=== PATIENT | female | born 1960 | race Caucasian/White ===

== ENCOUNTER 2024-07-12 07:32 | Day surgery (SDC) | payer OTHER, SELFPAY ==
[2024-06-26 12:31] VITALS: BMI 44.6
[2024-06-26 13:06] LABS: % Basophils 0.8 % (0-2); % Eosinophils 2.6 % (0-6); % Immature Granulocytes 0.2 % (0-0.5); % Lymphocytes 29.4 % (20.5-51.1); % Monocytes 7.3 % (1.7-9.3); % Neutrophils 59.7 % (42.2-75.2); Absolute Basophils 0.1 10^3/uL (0-0.2); Absolute Eosinophils 0.2 10^3/uL (0-0.7); Absolute Lymphocytes 1.9 10^3/uL (1.2-3.4); Absolute Monocytes 0.5 10^3/uL (0.1-0.6); Absolute Neutrophils 3.8 10^3/uL (1.4-6.5); Hematocrit 45.8 % (37.0-47.0); Hemoglobin 14.8 g/dL (12.0-16.0); Mean Corp Hgb Conc. 32.3 g/dL (33.0-37.0); Mean Corpuscular Hgb 30.6 pg (27.0-31.0); Mean Corpuscular Volume 94.6 fL (81.0-99.0); Mean Platelet Volume 10.2 fL (7.4-10.4); Nucleated Red Blood Cells % 0 %; Platelet Count 228 10^3/uL (130-400); Red Blood Cell Count 4.84 10^6/uL (4.20-5.40); Red Cell Dist. Width 12.5 % (11.5-14.5); White Blood Cell Count 6.4 10^3/uL (4.8-10.8)
[2024-06-26 13:13] LABS: INR 1.01; PT 13.6 Sec (11.4-14.6)
[2024-06-26 13:21] LABS: ALT (SGPT) 18 U/L (0-35); AST (SGOT) 22 U/L (14-36); Albumin 4.1 g/dl (3.5-5.0); Alkaline Phosphatase 132 U/L (38-126); Blood Urea Nitrogen 15 mg/dl (7-17); Calcium 9.1 mg/dl (8.4-10.2); Carbon Dioxide 32 mmol/L (22-30); Chloride 102 mmol/L (98-107); Estimated Creatinine Clearance 105 ml/min; Glucose 134 mg/dl (70-99); Potassium 4.7 mmol/L (3.5-5.1); Sodium 140 mmol/L (135-145); Total Bilirubin 0.5 mg/dl (0.2-1.3); Total Protein 6.7 g/dl (6.3-8.2); eGFR > 60.00
--- NOTE | 2024-06-26 13:26 | HPS.HSE ---
Family Physician
-
Family Physician: Chelo Booker
Chief Complaint
-
Paroxysmal atrial fibrillation.
History of Present Illness
The patient is a 63-year-old female presenting today for paroxysmal atrial fibrillation. The patient reports a rapid heart rate associated her arrhythmia. She is on current pharmacological therapy with Metoprolol Tartrate. She reports she
has been compliant with Eliquis for oral anticoagulation due to a [id number] of 4. She notes that her current palpitations greatly interfere with her activities of daily living and overall impact her quality of life. She is interested in pursuing
with pulmonary vein isolation for further arrhythmia management. She denies any current complaints today such as chest pain and shortness of breath at rest, palpitations, nausea, vomiting, diarrhea, lightheadedness, dizziness, cough, sore throat, or
fever.
Medical History
Past Medical History
Past Medical History: Reports Other
Additional Past Medical History:
1. Paroxysmal atrial fibrillation, pharmacological therapy with Metoprolol Tartrate and oral anticoagulation with Eliquis.
2. Hypertension.
3. Hyperlipidemia.
4. Mild obstructive sleep apnea, no device required.
5. Non-insulin dependent diabetes.
6. GERD.
7. Colon polyps.
8. Vertigo.
9. Osteoarthritis.
10. Skin cancer, status post excision.
11. Osteopenia.
12. Anxiety.
13. Morbid obesity, BMI 44.6.
Past Surgical History: Reports Other
Additional Past Surgical History:
1. Tonsillectomy.
2. [place] teeth excision.
3. Colonoscopy.
4. Endoscopy.
Social History
Tobacco: Non-smoker
Alcohol: Other (Social. )
Personal:
Living: Other (She lives with her in a split level home. )
Family History
Family History: Not pertinent
Allergies / Home Medications
Allergy/Medication List:
Home medications:
1. Acetaminophen 650 mg p.o. every 4 hours as needed.
2. Apixaban 5 mg p.o. twice a day.
3. Escitalopram 10 mg p.o. at bedtime.
4. Loratadine 10 mg p.o. daily.
5. Losartan 50 mg p.o. daily.
6. Metformin 500 mg p.o. daily.
7. Metformin 1000 mg p.o. every evening.
8. Metoprolol Tartrate 50 mg p.o. three times a day.
9. Rosuvastatin 20 mg p.o. every evening.
Allergies: Seasonal. No known allergies.
Review of Systems
-
A 12 point ROS was completed and negative except as noted: Yes
Physical Exam
Vital Signs
Blood pressure 142/75. Heart rate 63. Respirations 18. Pulse ox 98%.
Height 5 feet, 5 inches. Weight 121.5 kg. BMI 44.6.
Physical Exam
General: Well Developed, Well Nourished and No Apparent Distress
HEENT: NormoCephalic, Moist mucous membranes, Atraumatic and PERRLA
Respiratory: Clear
Cardiac: Regular Rhythm
GI: Soft, Non Tender, Non Distended and Other (Obese. )
Musculoskeletal: Normal Gait & Station
Skin: Warm and Dry
Neuro: AO x 3 and Nonfocal/grossly intact
Laboratory Results
-
06/26/24 12:39
06/26/24 12:39
Laboratory Results
PT 13.6 Sec (11.4-14.6) 06/26/24 12:39
INR 1.01 06/26/24 12:39
Total Bilirubin 0.5 mg/dl (0.2-1.3) 06/26/24 12:39
AST 22 U/L (14-36) 06/26/24 12:39
ALT 18 U/L (0-35) 06/26/24 12:39
Alkaline Phosphatase 132 U/L (38-126) H 06/26/24 12:39
Type and screen O positive.
EKG 06/26/2024: Sinus bradycardia. Low voltage QRS.
Chest CT 06/26/2024: Normal, conventional pulmonary venous anatomy. No left atrial filling defect/thrombus is identified.
Echocardiogram 10/26/2023: Normal LV function. Ejection fraction is 60%. Normal right ventricular function. No significant valvular disease. There is mild left atrial enlargement and other chamber sizes are normal.
Impression/Plan
-
IMPRESSION/PLAN:
1. Paroxysmal atrial fibrillation: The patient is in need of pulmonary vein isolation with Dr. Michel Barba on 07/12/2024. The benefits and risks of the procedure have been explained to the patient. The patient understands these risks and wishes to
proceed. She will not be required to undergo a pre-procedural transesophageal echocardiogram as she has been compliant with her home oral anticoagulation. She is aware to continue her Eliquis uninterrupted prior to her upcoming procedure. She will
take no medications the morning of her ablation.
[2024-07-12] VITALS (10 sets, daily range): BP systolic 106–145; BP diastolic 64–106; BMI 44.4
[2024-07-12 08:26] LABS: Glucose - Point of Care 122 mg/dl (70-99)
[2024-07-12 10:55] LABS: ACT-LR - POC 334 Seconds (116-155)
--- NOTE | 2024-07-12 11:22 | ITS.CL.ABL ---
[employer] - Ablation
Ablation
Procedure Report:
ELECTROPHYSIOLOGY ABLATION STUDY
DATE:: July 12, 2024�����������������������������REFERRING: Dr. Nikolay Eduardo
INDICATION: Paroxysmal supraventricular tachycardia in the form of atrial fibrillation.�
HISTORY: See H and P.��As above
ANTIARRHYTHMIC DRUG: Metoprolol
PRE-PROCEDURE DARWIN: No intracardiac thrombus on intracardiac ultrasound
PRESENTING RHYTHM: Sinus rhythm
'TIME-OUT':��called and confirmed.
SEDATION/ANESTHESIA:��provided via the anesthesia department using general anesthesia (LMA).
INTRAVENOUS/ARTERIAL ACCESS:
Right femoral venous - 8Fr
Left femoral venous - 8 Fr, 6 Fr
[id number] suture to bilateral femoral venous sites
Ultrasound guidance for bilateral femoral vein access was utilized by me to obtain access with demonstration of normal anatomy
CHADS-VASC Score:
HAS-Bled Score
PROCEDURE:
1.��A decapolar CS catheter was placed within the CS for mapping and pacing.��This was also used as the reference catheter for the 3-D map.
2. The intracardiac ultrasound catheter was positioned in the RA to identify the FO for targeting of transseptal puncture, assist��in identification of the pulmonary vein ostia, monitoring pre and post ablation pulmonary vein flow velocities,
monitoring for 'bubble' formation during RF application as a sign of thermal injury,��and to monitor for pericardial effusion during mapping and ablation procedure.���Left atrial size, LV ejection fraction, and pulmonary vein flows were monitored
pre and post ablation procedure. The other valves were inspected and found to be free of significant regurgitation or stenosis.
3.��Half of the calculated heparin bolus was administered prior to the first transeptal puncture.��Transseptal puncture was performed to diagnose RA and LA pressure so that safety of LA mapping and ablation could be further assessed, and to access
the left atrium and pulmonary veins for mapping and ablation.��This entailed advancing an 8 Fr SL-1 sheath with dilator into the superior vena cava and withdrawing both (monitoring intracardiac ultrasound, fluoroscopy and tip pressure) with the tip
oriented toward the atrial septum.��The fossa ovalis was engaged (indicated by sudden displacement of the sheath tip as well as tenting of the fossa seen on intracardiac ultrasound).��Left atrial access required a pass with the [place] needle
extended.��Left atrial catheter position was confirmed by pressure monitoring (RA mean pressure 8 mm Hg and LA mean pressure 14 mm Hg), LA saturation ( 99 %),��as well as fluoroscopy.��The sheath was advanced over the dilator and positioned in the
left atrium.����The remainder of the calculated heparin bolus was administered and heparin was
infused to maintain ACT at 300 -350 seconds throughout the case.
4.��RA pacing was performed via the proximal decapolar poles and LA pacing was performed via the distal decapolr poles.
5. A quadrapolar catheter was first positioned at the His position for His Bundle recording which was tagged via the 3-D Navex sytem, and then passed to the RVA for RV pacing and recording.
6. The multipolar catheter and the PFA catheter were placed in each of LIPV, LSPV, RSPV and the RIPV.��
7.��Next, a 3-D map was created using Navex.���A 3-D reconstructed CT image was compared to the 3-D Navex map to assist in anatomic interpretation, mapping and ablation.��The CT image and the NavX image were fused.
8. 58 lesions were given to the pulmonary veins and left atrial posterior wall. This led to entrance and exit block in all 4 pulmonary veins and electrical silence of the roof posterior wall and floor of the left atrium. The veins were addressed
and all of and basket pose in the posterior wall floor and roof and floor post.
9. Normal sinus node anemia function noted. Atrial single extrastimuli from multiple atrial sites demonstrated no inducible tachyarrhythmia beyond what was ablated.
TOTAL FLOURO TIME: 11.2 minutes 113 mGy
TOTAL RF DURATION: 0 minutes
REVERSAL OF HEPARIN: 40 mg of protamine, slow IV administration
COMPLICATIONS:
None
Intracardiac US shows no pericardial effusion post ablation.
SUMMARY:��
Complex left atrial mapping and ablation.
Isolation of the pulmonary veins and left atrial posterior wall as above.
RECOMMENDATIONS:
1. Ambulate in 4 hours
2. Resume anticoagulation
3.��Consider same-day discharge
4.��Outpatient follow-up
Copy to: Dr. Nikolay Eduardo
[2024-07-12] MEDS: TYLENOL 650 MG PO (11:53)
[2024-07-12 12:07] LABS: Glucose - Point of Care 139 mg/dl (70-99)
[2024-07-12] MEDS: ANESTHETIC LOZENGE 1 LOZENGE PO (13:43)
[2024-07-12 14:00] LABS: ACT-LR - POC 260 Seconds (116-155)
[2024-07-12 14:13] LABS: ACT-LR - POC 142 Seconds (116-155)
--- NOTE | 2024-07-12 15:47 | W.PN.UPDATE ---
Update Note
Progress Note Update
63 yo WF s/p PVI (same day). She denies cp, sob, michell diet, voiding, amb w/o dizziness, EKG SR, R fem site c/d/i no HT, soft. She will resume Eliquis tonight. Activity restrictions reviewed. She will f/u Dr. Eduardo in 2 mo. She is for d/c home after 4pm.
== END 2024-07-12 16:12 | disposition home or self-care (01) ==
LOC: CATH 07:32
PROVIDERS: ATTENDING PHYSICIAN Internal Medicine Cardiovascular Disease; FAMILY PHYSICIAN Family Medicine; OTHER PHYSICIAN Internal Medicine Cardiovascular Disease
DX: I48.0 Paroxysmal atrial fibrillation (principal); I47.19 Other supraventricular tachycardia; Z79.899 Other long term (current) drug therapy; I10 Essential (primary) hypertension; E78.5 Hyperlipidemia, unspecified; G47.33 Obstructive sleep apnea (adult) (pediatric); E11.9 Type 2 diabetes mellitus without complications; Z79.84 Long term (current) use of oral hypoglycemic drugs; K21.9 Gastro-esophageal reflux disease without esophagitis; Z86.0100 Personal history of colon polyps, unspecified; R42 Dizziness and giddiness; M19.90 Unspecified osteoarthritis, unspecified site; Z85.828 Personal history of other malignant neoplasm of skin; M85.80 Other specified disorders of bone density and structure, unspecified site; F41.9 Anxiety disorder, unspecified; E66.01 Morbid (severe) obesity due to excess calories; Z68.41 Body mass index [BMI] 40.0-44.9, adult; Z90.89 Acquired absence of other organs; Z79.01 Long term (current) use of anticoagulants
CPT/HCPCS: C1732; C1894; C1730; C1759; 36415; 75572; 80053; 82962; 83735; 85025; 85347; 85610; 86850; 86900; 86901; 93005; 93656; 93657; C1733; C1766; Q9967